=== PATIENT | male | born 2000 | race Caucasian/White ===

== ENCOUNTER 2023-12-13 15:34 | Emergency (ER) | payer OTHER, MEDICAID, SELFPAY ==
[2023-12-13 15:43] VITALS: BP 126/69; PULSE 65; RESP 18; TEMP 37.1; O2SAT 98; BMI 33.9
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
== END 2023-12-13 20:00 | disposition home or self-care (01) ==
PROVIDERS: Emergency Provider Emergency Medicine
DX: S40.011A Contusion of right shoulder, initial encounter (principal); S00.81XA Abrasion of other part of head, initial encounter; S49.91XA Unspecified injury of right shoulder and upper arm, initial encounter; S09.90XA Unspecified injury of head, initial encounter; V19.9XXA Pedal cyclist (driver) (passenger) injured in unspecified traffic accident, initial encounter
CPT/HCPCS: 73030; 99281; 99283